=== PATIENT | male | born 1975 | race Caucasian/White ===

== ENCOUNTER 2025-07-24 15:00 | Inpatient (IN) | payer BC ==
[~2025-07-24 15:00] MED LIST: Iopamidol 370 76% 100 ML VIAL ONE
[2025-07-24 15:24] LABS: #Basophils 0.07 10x3/uL (0.0-0.2); #Eosinophils 0.23 10x3/uL (0.0-0.7); #Monocytes 0.46 10x3/uL (0.11-0.59); #Neutrophils 4.21 10x3/uL (1.40-6.50); %Basophils 0.9 % (0.0-1.0); %Eosinophils 3.0 % (0.0-10.0); %Lymphocytes 35.3 % (21.0-51.0); %Monocytes 6.0 % (0.0-10.0); %Neutrophils 54.4 % (42.0-75.0); Hematocrit 49.7 % (42.0-52.0); Hemoglobin 16.7 g/dL (14.0-18.0); Mean Corpuscular Hemoglobin 29.2 pg (27.0-31.0); Mean Corpuscular Volume 86.9 fL (78.0-98.0); Platelet Count 240 10x3/uL (130-400); Red Blood Cell (RBC) Count 5.72 mill/uL (4.70-6.10); White Blood Cell (WBC) Count 7.73 10x3/uL (4.8-10.8)
[2025-07-24 15:42] LABS: ALT (SGPT) 60 U/L (Less than 45); AST (SGOT) 69 U/L (11-34); Albumin 4.5 g/dL (3.1-4.5); Alkaline Phosphatase 136 U/L (40-110); Anion Gap 17 mmol/L (10-20); BUN (Urea Nitrogen) 14 mg/dL (8.4-25.7); Bilirubin, Total 0.9 mg/dL (0.3-1.2); Calc. Creatinine Clearance 0 mL/min (70-130); Calcium 10.4 mg/dL (7.8-10.44); Carbon Dioxide 23 mmol/L (22-29); Chloride 99 mmol/L (98-107); Globulin 3.5 g/dL (2.4-3.5); Glucose 298 mg/dL (70-105); Potassium 3.4 mmol/L (3.5-5.1); Sodium 136 mmol/L (136-145)
[2025-07-24 15:44] LABS: INR-International Normal Ratio 1.0; PTT 29.6 sec (22.9-36.1); Prothrombin Time 13.4 sec (12.0-14.7)
[2025-07-24] MEDS ORDERED: Heparin 10,000 UNITS/ 10 ML VIAL ONE (15:54)
[2025-07-24] MEDS ORDERED: Bupivacaine 0.25% HCL 30 ML VIAL ONE (15:58)
[2025-07-24] MEDS ORDERED: Sodium Bicarb 50 MEQ/50 ML Abboject 8.4% SYRINGE ONE ×2 (15:58→18:02)
[2025-07-24] MEDS ORDERED: SUCCINYLCHOLINE/SOD CL,ISO/PF 200 MG/10 ML SYRINGE FS ONE (16:21)
[2025-07-24] MEDS ORDERED: Rocuronium Bromide 10 MG/ML (10ML VIAL) ONE ×2 (17:21→18:43)
[2025-07-24] MEDS ORDERED: PHENYLEPHRINE-NS 100 MCG/ML 10 ML SYRINGE ONE ×2 (17:28→20:32)
[2025-07-24] MEDS ORDERED: Lidocaine 1% PF 5 ML VIAL ONE (17:29)
[2025-07-24] MEDS ORDERED: Etomidate 40 MG (20 mL) VIAL ONE (17:29)
[2025-07-24] MEDS ORDERED: Thrombin 5000 UNITS/5 ML VIAL ONE (18:02)
[2025-07-24] MEDS ORDERED: Heparin 5,000 UNITS/ML VIAL ONE (18:02)
[2025-07-24] MEDS ORDERED: Calcium Chloride 1 GM/10 ML Abboject SYRINGE ONE (18:02)
[2025-07-24] MEDS ORDERED: Cardioplegic Soln 1,000 ML BAG ONE (18:02)
[2025-07-24] MEDS ORDERED: Heparin 30,000 units/30 ml VIAL ONE (18:02)
[2025-07-24] MEDS ORDERED: fentaNYL PF 100 MCG/2 ML SYRINGE ONE (18:34)
[2025-07-24] MEDS ORDERED: Ondansetron PF 4 MG/2 ML Vial ONE (21:07)
[2025-07-24] MEDS ORDERED: hydrALAZINE 20 MG/ML VIAL SLOW IVP PRN (21:38)
[2025-07-24] MEDS ORDERED: Bisacodyl 10 MG SUPP PR PRN (21:38)
[2025-07-24] MEDS ORDERED: niCARdipine 25 MG in Sodium Chloride 0.9% 250 ML 250 ML IVPB PRN (21:38)
[2025-07-24] MEDS ORDERED: Mag-Al 1200 mg/1200 mg/30 ML UDCUP PO PRN (21:38)
[2025-07-24] MEDS ORDERED: Guaifenesin DM 100-10/5 ML UDCUP PO PRN (21:38)
[2025-07-24] MEDS ORDERED: NOREPINEPHRINE 8 MG/250 ML-D5W 250 ML IVPB PRN (21:38)
[2025-07-24] MEDS ORDERED: Glucagon 1 MG/ML KIT SC PRN (22:00)
[2025-07-24] MEDS ORDERED: Dextrose 50% Abboject 50 ML SYRINGE SLOW IVP PRN (22:00)
[2025-07-24] MEDS: Albumin 5% 12.5 GM (250 mL) BOT IVPB PRN ×2 (22:12→23:22)
[2025-07-24 22:36] LABS: #Basophils 0.08 10x3/uL (0.0-0.2); #Eosinophils 0.19 10x3/uL (0.0-0.7); #Monocytes 1.24 10x3/uL (0.11-0.59); #Neutrophils 15.74 10x3/uL (1.40-6.50); %Basophils 0.4 % (0.0-1.0); %Eosinophils 0.9 % (0.0-10.0); %Lymphocytes 16.9 % (21.0-51.0); %Monocytes 5.9 % (0.0-10.0); %Neutrophils 74.9 % (42.0-75.0); Hematocrit 40.5 % (42.0-52.0); Hemoglobin 13.7 g/dL (14.0-18.0); INR-International Normal Ratio 1.2; Mean Corpuscular Hemoglobin 29.7 pg (27.0-31.0); Mean Corpuscular Volume 87.9 fL (78.0-98.0); PTT 29.9 sec (22.9-36.1); Platelet Count 252 10x3/uL (130-400); Prothrombin Time 15.5 sec (12.0-14.7); Red Blood Cell (RBC) Count 4.61 mill/uL (4.70-6.10); White Blood Cell (WBC) Count 21.03 10x3/uL (4.8-10.8)
[2025-07-24 22:47] LABS: Anion Gap 14 mmol/L (10-20); BUN (Urea Nitrogen) 10 mg/dL (8.4-25.7); Calc. Creatinine Clearance 0 mL/min (70-130); Calcium 8.2 mg/dL (7.8-10.44); Carbon Dioxide 21 mmol/L (22-29); Chloride 107 mmol/L (98-107); Glucose 216 mg/dL (70-105); Potassium 3.4 mmol/L (3.5-5.1); Sodium 139 mmol/L (136-145)
[2025-07-24] MEDS: Magnesium 2 GM/50 ML(in water) 2 GM in Premix 1 BAG IVPB SCH (22:56)
[2025-07-24] MEDS: Ketorolac Tromethamine 30 MG (1 mL) VIAL IVP SCH (22:57)
[2025-07-24] MEDS: Post-Op Insulin Drip Protocol IVPB ONE (23:36)
[2025-07-24 23:48] LABS: Actual Bicarbonate (HCO3a) 19.4 mEq/L (22-28); Base Excess (BEa) -5.3 mEq/L (-2.0 to +3.0); CO2 Tension 34.9 mmHg (35.0-45.0); Calcium, Ionized (arterial) 1.07 mmol/L (1.12-1.30); Hematocrit-ABG 38 % (42.0-52.0); Hemoglobin (Hb) 12.9 g/dL (14.0-18.0); O2 Tension (PaO2), arterial 92.6 mmHg (80.0-100.0); Potassium - ABG Lab 3.43 mmol/L (3.70-5.30); pH, Arterial 7.362 (7.35-7.45)
[2025-07-24 23:49] LABS: ALV-art Gradient 148.975 mmHg (0-20); Puncture Site Arterial Line
[2025-07-25] MEDS: Sodium Bicarb 50 MEQ/50 ML Abboject 8.4% SYRINGE ONE (00:08)
[2025-07-25] MEDS: Sodium Bicarb 50 MEQ/50 ML Abboject 8.4% SYRINGE IVP SCH (00:08)
[2025-07-25] MEDS: Potassium Chloride 20 MEQ (100 mL) BAG IVPB PRN (00:09)
[2025-07-25] MEDS: Aspirin Chewable 81 MG TAB PO SCH (00:48)
[2025-07-25] MEDS: Acetaminophen 325 MG TAB PO SCH (01:14)
[2025-07-25] MEDS: INSULIN REGULAR IN 0.9 % NACL 100 UNITS in Premix 1 BAG IVPB SCH (02:11)
[2025-07-25] MEDS: INSULIN REGULAR IN 0.9 % NACL 100 ML ONE (03:12)
[2025-07-25 03:46] LABS: #Basophils 0.03 10x3/uL (0.0-0.2); #Eosinophils Less than 0.03 10x3/uL (0.0-0.7); #Monocytes 0.67 10x3/uL (0.11-0.59); #Neutrophils 13.81 10x3/uL (1.40-6.50); %Basophils 0.2 % (0.0-1.0); %Eosinophils 0.0 % (0.0-10.0); %Lymphocytes 6.4 % (21.0-51.0); %Monocytes 4.3 % (0.0-10.0); %Neutrophils 88.7 % (42.0-75.0); Hematocrit 33.6 % (42.0-52.0); Hemoglobin 11.4 g/dL (14.0-18.0); Mean Corpuscular Hemoglobin 30.1 pg (27.0-31.0); Mean Corpuscular Volume 88.7 fL (78.0-98.0); Platelet Count 212 10x3/uL (130-400); Red Blood Cell (RBC) Count 3.79 mill/uL (4.70-6.10); White Blood Cell (WBC) Count 15.58 10x3/uL (4.8-10.8)
[2025-07-25] MEDS: HYDROcodone/Acetaminophen 5/325 mg Tablet PO PRN ×2 (04:03→12:28)
[2025-07-25 04:06] LABS: Anion Gap 14 mmol/L (10-20); BUN (Urea Nitrogen) 10 mg/dL (8.4-25.7); Calc. Creatinine Clearance 153 mL/min (70-130); Calcium 8.0 mg/dL (7.8-10.44); Carbon Dioxide 24 mmol/L (22-29); Chloride 107 mmol/L (98-107); Glucose 242 mg/dL (70-105); Magnesium 2.4 mg/dL (1.6-2.6); Potassium 3.5 mmol/L (3.5-5.1); Sodium 141 mmol/L (136-145)
[2025-07-25] MEDS: Norepinephrine 8 MG/0.9% NS 250 ML IVPB PRN (05:39)
[2025-07-25] MEDS: Potassium Phosphate 30 MMOL in Sodium Chloride 0.9% 250 ML 250 ML IVPB SCH (08:47)
[2025-07-25] MEDS: Aspirin 325 MG TAB PO SCH (08:48)
[2025-07-25] MEDS: Mupirocin 1 GM TUBE NASAL DECOLONIZATION NASAL SCH (08:48)
[2025-07-25] MEDS: Famotidine/PF 20 mg/2ml Vial SLOW IVP SCH (08:49)
[2025-07-25] MEDS: Magnesium 2 GM/50 ML(in water) 2 GM in Premix 1 BAG IVPB SCH (08:49)
[2025-07-25] MEDS: Insulin Glargine 30 UNITS/0.3 ML VIAL SC SCH (09:53)
[2025-07-25 14:39] LABS: ALT (SGPT) 49 U/L (Less than 45); AST (SGOT) 200 U/L (11-34); Albumin 3.6 g/dL (3.1-4.5); Alkaline Phosphatase 61 U/L (40-110); Anion Gap 14 mmol/L (10-20); BUN (Urea Nitrogen) 8 mg/dL (8.4-25.7); Bilirubin, Total 0.7 mg/dL (0.3-1.2); Calc. Creatinine Clearance 178 mL/min (70-130); Calcium 7.8 mg/dL (7.8-10.44); Carbon Dioxide 23 mmol/L (22-29); Chloride 107 mmol/L (98-107); Globulin 1.9 g/dL (2.4-3.5); Glucose 196 mg/dL (70-105); Potassium 4.1 mmol/L (3.5-5.1); Sodium 140 mmol/L (136-145)
[2025-07-25] MEDS: Heparin 5,000 UNITS/ML VIAL SC SCH (15:37)
[2025-07-25] MEDS: Ondansetron PF 4 MG/2 ML Vial IVP PRN (16:24)
[2025-07-25] MEDS: FLU (Fluarix Triv) 25-26 (6MOS UP)/PF 45 MCG/0.5 ML Syringe IM ONE (17:44)
[2025-07-25] MEDS: Transdermal Patch Removal TOP SCH (20:29)
[2025-07-26 04:24] LABS: Anion Gap 11 mmol/L (10-20); BUN (Urea Nitrogen) 13 mg/dL (8.4-25.7); Calc. Creatinine Clearance 162 mL/min (70-130); Calcium 8.0 mg/dL (7.8-10.44); Carbon Dioxide 27 mmol/L (22-29); Cardiac Risk 6.0 (Less than 4.5); Chloride 107 mmol/L (98-107); Cholesterol 114 mg/dl (< 200 Desired); Glucose 184 mg/dL (70-105); HDL Cholesterol 19 mg/dL (>60 Neg Risk); LDL Cholesterol, Calculated 63 mg/dL; Magnesium 2.5 mg/dL (1.6-2.6); Potassium 3.9 mmol/L (3.5-5.1); Sodium 141 mmol/L (136-145); Triglycerides 161 mg/dL (Less than 150)
[2025-07-26 04:25] LABS: Platelet Adequacy Comment Platelets Decreased; RBC Morphology Within Normal Limits
[2025-07-26 04:35] LABS: #Basophils 0.04 10x3/uL (0.0-0.2); #Eosinophils 0.03 10x3/uL (0.0-0.7); #Monocytes 0.64 10x3/uL (0.11-0.59); #Neutrophils 6.09 10x3/uL (1.40-6.50); %Basophils 0.5 % (0.0-1.0); %Eosinophils 0.3 % (0.0-10.0); %Lymphocytes 22.0 % (21.0-51.0); %Monocytes 7.3 % (0.0-10.0); %Neutrophils 69.6 % (42.0-75.0); Hematocrit 28.5 % (42.0-52.0); Hemoglobin 9.3 g/dL (14.0-18.0); Mean Corpuscular Hemoglobin 30.0 pg (27.0-31.0); Mean Corpuscular Volume 91.9 fL (78.0-98.0); Platelet Count 123 10x3/uL (130-400); Red Blood Cell (RBC) Count 3.10 mill/uL (4.70-6.10); White Blood Cell (WBC) Count 8.76 10x3/uL (4.8-10.8)
[2025-07-26] MEDS: Pantoprazole 40 MG DR.TAB PO SCH (09:01)
[2025-07-27 04:30] LABS: #Basophils 0.03 10x3/uL (0.0-0.2); #Eosinophils 0.05 10x3/uL (0.0-0.7); #Monocytes 0.59 10x3/uL (0.11-0.59); #Neutrophils 6.07 10x3/uL (1.40-6.50); %Basophils 0.4 % (0.0-1.0); %Eosinophils 0.6 % (0.0-10.0); %Lymphocytes 20.0 % (21.0-51.0); %Monocytes 7.0 % (0.0-10.0); %Neutrophils 71.5 % (42.0-75.0); Hematocrit 26.3 % (42.0-52.0); Hemoglobin 8.4 g/dL (14.0-18.0); Mean Corpuscular Hemoglobin 29.9 pg (27.0-31.0); Mean Corpuscular Volume 93.6 fL (78.0-98.0); Platelet Count 109 10x3/uL (130-400); Red Blood Cell (RBC) Count 2.81 mill/uL (4.70-6.10); White Blood Cell (WBC) Count 8.47 10x3/uL (4.8-10.8)
[2025-07-27 04:41] LABS: Anion Gap 12 mmol/L (10-20); BUN (Urea Nitrogen) 22 mg/dL (8.4-25.7); Calc. Creatinine Clearance 164 mL/min (70-130); Calcium 8.0 mg/dL (7.8-10.44); Carbon Dioxide 25 mmol/L (22-29); Chloride 103 mmol/L (98-107); Glucose 166 mg/dL (70-105); Magnesium 2.2 mg/dL (1.6-2.6); Potassium 3.6 mmol/L (3.5-5.1); Sodium 136 mmol/L (136-145)
[2025-07-27 06:09] VITALS: BMI 27.8
[2025-07-27] MEDS ORDERED: Mag-Al 1200 mg/1200 mg/30 ML UDCUP PO PRN (18:21)
[2025-07-27] MEDS ORDERED: Nitroglycerin 0.4 MG TAB (25 Tab Bottle) SL PRN (18:21)
[2025-07-27] MEDS ORDERED: diphenhydrAMINE 25 MG CAP PO PRN (18:21)
[2025-07-27] MEDS ORDERED: Mineral Oil ENEMA PR PRN (18:21)
[2025-07-27] MEDS ORDERED: Artificial Tear Ophth Sol 15 ML BOT EA EYE PRN (18:21)
[2025-07-29] MEDS: Senokot 8.6 MG TAB PO SCH (09:14)
[2025-07-29] MEDS: metFORMIN 500 MG TAB PO SCH (09:15)
[2025-07-29] MEDS: Losartan 25 MG TAB PO SCH (09:26)
[2025-07-29] MEDS: Metoprolol Succinate XL 25 MG ER.TAB PO SCH (09:27)
[2025-07-29 11:35] VITALS: TEMP 98
[2025-07-29 16:05] VITALS: BP 137/80
== END 2025-07-29 17:14 | disposition home or self-care (01) | DRG 234 ==
LOC: ERS 15:00 → CCU 21:38 → PCU 07-27 18:18
PROVIDERS: ADMIT Student in an Organized Health Care Education/Training Program; ATTEND Student in an Organized Health Care Education/Training Program
PROC: 4A023N8 Measurement of Cardiac Sampling and Pressure, Bilateral, Percutaneous Approach (ICD-10-PCS; principal; 2025-07-24)
PROC: 02100Z9 Bypass Coronary Artery, One Artery from Left Internal Mammary, Open Approach (ICD-10-PCS; 2025-07-24)
PROC: B2111ZZ Fluoroscopy of Multiple Coronary Arteries using Low Osmolar Contrast (ICD-10-PCS; 2025-07-24)
PROC: 021209W Bypass Coronary Artery, Three Arteries from Aorta with Autologous Venous Tissue, Open Approach (ICD-10-PCS; 2025-07-24)
PROC: 06BQ4ZZ Excision of Left Saphenous Vein, Percutaneous Endoscopic Approach (ICD-10-PCS; 2025-07-24)
PROC: 06BP4ZZ Excision of Right Saphenous Vein, Percutaneous Endoscopic Approach (ICD-10-PCS; 2025-07-24)
PROC: B2151ZZ Fluoroscopy of Left Heart using Low Osmolar Contrast (ICD-10-PCS; 2025-07-24)
PROC: 02L70CK Occlusion of Left Atrial Appendage with Extraluminal Device, Open Approach (ICD-10-PCS; 2025-07-24)
PROC: 5A1221Z Performance of Cardiac Output, Continuous (ICD-10-PCS; 2025-07-24)
PROC: 30233J1 Transfusion of Nonautologous Serum Albumin into Peripheral Vein, Percutaneous Approach (ICD-10-PCS; 2025-07-24)
PROC: 3E03329 Introduction of Other Anti-infective into Peripheral Vein, Percutaneous Approach (ICD-10-PCS; 2025-07-24)
PROC: 3E033XZ Introduction of Vasopressor into Peripheral Vein, Percutaneous Approach (ICD-10-PCS; 2025-07-24)
PROC: 3E0234Z Introduction of Serum, Toxoid and Vaccine into Muscle, Percutaneous Approach (ICD-10-PCS; 2025-07-25)
PROC: 4A033R1 Measurement of Arterial Saturation, Peripheral, Percutaneous Approach (ICD-10-PCS; 2025-07-25)
DX: I21.4 Non-ST elevation (NSTEMI) myocardial infarction (principal); I25.10 Atherosclerotic heart disease of native coronary artery without angina pectoris; I10 Essential (primary) hypertension; E11.9 Type 2 diabetes mellitus without complications; Z79.84 Long term (current) use of oral hypoglycemic drugs; Z79.899 Other long term (current) drug therapy; Z23 Encounter for immunization
CPT/HCPCS: 36415; 36416; 36430; 71045; 80048; 80053; 80061; 82805; 83036; 83735; 84100; 84484; 85025; 85347; 85610; 85730; 86850; 86900; 86901; 90656; 93005; 93010; 93306; 93458; 93798; 94002; 94760; 99152; A4311; A4648; C1751; C1769; C1887; C1889; C1894; J0169; J0665; J1100; J1308; J1644; J1815; J1885; J2250; J2405; J2440; J2720; J3010; J3373; J3475; J3480; J7030; J7050; P9045; Q9967; S0017

== ENCOUNTER 2025-08-07 19:05 | Emergency (ER) | payer BC ==
[2025-08-07 19:50] LABS: #Basophils 0.05 10x3/uL (0.0-0.2); #Eosinophils 0.20 10x3/uL (0.0-0.7); #Monocytes 0.56 10x3/uL (0.11-0.59); #Neutrophils 6.50 10x3/uL (1.40-6.50); %Basophils 0.5 % (0.0-1.0); %Eosinophils 2.2 % (0.0-10.0); %Lymphocytes 19.4 % (21.0-51.0); %Monocytes 6.1 % (0.0-10.0); %Neutrophils 71.4 % (42.0-75.0); Hematocrit 32.8 % (42.0-52.0); Hemoglobin 10.9 g/dL (14.0-18.0); Mean Corpuscular Hemoglobin 29.6 pg (27.0-31.0); Mean Corpuscular Volume 89.1 fL (78.0-98.0); Platelet Count 424 10x3/uL (130-400); Red Blood Cell (RBC) Count 3.68 mill/uL (4.70-6.10); White Blood Cell (WBC) Count 9.12 10x3/uL (4.8-10.8)
[2025-08-07 20:09] LABS: ALT (SGPT) 27 U/L (Less than 45); AST (SGOT) 52 U/L (11-34); Albumin 3.7 g/dL (3.1-4.5); Alkaline Phosphatase 147 U/L (40-110); Anion Gap 16 mmol/L (10-20); BUN (Urea Nitrogen) 24 mg/dL (8.4-25.7); Bilirubin, Total 0.6 mg/dL (0.3-1.2); Calc. Creatinine Clearance 0 mL/min (70-130); Calcium 9.8 mg/dL (7.8-10.44); Carbon Dioxide 25 mmol/L (22-29); Chloride 98 mmol/L (98-107); Globulin 3.2 g/dL (2.4-3.5); Glucose 191 mg/dL (70-105); Potassium 4.0 mmol/L (3.5-5.1); Sodium 135 mmol/L (136-145)
== END 2025-08-07 22:50 | disposition home or self-care (01) ==
LOC: ERS 19:05
DX: I95.9 Hypotension, unspecified (principal); N17.9 Acute kidney failure, unspecified; I10 Essential (primary) hypertension; E10.9 Type 1 diabetes mellitus without complications; I25.2 Old myocardial infarction; Z87.891 Personal history of nicotine dependence
CPT/HCPCS: 71045; 80053; 83880; 84484; 85025; 93005; 94760